=== PATIENT | female | born 1940 | race Caucasian/White ===

== ENCOUNTER 2023-11-04 19:42 | Emergency (ER) | payer OTHER ==
[~2023-11-04] VITALS: Ht 152.4 cm; Wt 54.4 kg
[2023-11-04] MEDS ORDERED: ONDANSETRON 4 MG/2 ML VIAL ONE (20:18)
[2023-11-04] MEDS ORDERED: HYDROMORPHONE 1 MG/1 ML DISP.SYRIN ONE ×2 (20:19→22:48)
[2023-11-04] MEDS: HYDROMORPHONE 1 MG/1 ML DISP.SYRIN IV ONE ×2 (20:22→22:56)
[2023-11-04] MEDS: ONDANSETRON 4 MG/2 ML VIAL IV ONE (20:23)
[2023-11-04 20:26] LABS: BASOPHILS % (AUTO) 0.5 % (0.0-2.0); HEMATOCRIT 31.8 % (31.2-41.9); HEMOGLOBIN 10.7 g/dL (10.9-14.3); LYMPHOCYTES # (AUTO) 0.6 K/uL (0.8-4.8); LYMPHOCYTES % (AUTO) 11.7 % (20.5-51.5); MEAN CORPUSCULAR HGB CONC 34 g/dL (32.3-35.6); MONOCYTES # (AUTO) 0.5 K/uL (0.1-1.30); MONOCYTES % (AUTO) 11.4 % (0.0-11.0); NEUTROPHILS # (AUTO) 3.6 K/uL (1.8-8.9); NEUTROPHILS % (AUTO) 76.4 % (38.5-71.5); PLATELET COUNT (AUTO) 86 K/uL (179-408); RED BLOOD CELL COUNT(AUTO) 3.57 MIL/uL (3.63-4.92); RED CELL DISTRIBUTION WIDTH 16.4 % (12.3-17.7); WHITE BLOOD COUNT (AUTO) 4.7 K/uL (3.8-11.8)
[2023-11-04 20:30] LABS: DIFFERENTIAL COMMENT 1
[2023-11-04 20:34] LABS: CALCIUM 8.8 mg/dL (8.5-10.1); CARBON DIOXIDE 28 mmol/L (21-32); CHLORIDE 102 mmol/L (98-107); CREATININE 0.7 mg/dL (0.6-1.3); GLUCOSE 122 mg/dL (74-106); POTASSIUM 3.8 mmol/L (3.5-5.1); SODIUM SERUM 139 mmol/L (136-145); UREA NITROGEN, BLOOD 18 mg/dL (7-18)
[2023-11-04 20:40] LABS: ALANINE AMINOTRANSFERASE 25 U/L (14-59); ALBUMIN 3.8 g/dL (3.4-5.0); ALKALINE PHOSPHATASE 56 U/L (50-136); ASPARTATE AMINOTRANSFERASE 26 U/L (15-37); BILIRUBIN,TOTAL 1.7 mg/dL (0.2-1.0)
[2023-11-04 20:59] LABS: BAND % (MANUAL) 1 % (0-10); LYMPHOCYTES % (MANUAL) 12 % (20-40); MONOCYTES % (MANUAL) 12 % (2-10); NEUTROPHILS % (MANUAL) 75 % (42-75); PLATELET ESTIMATE DECREASED
[2023-11-04 21:00] LABS: ANISOCYTOSIS 1+; TEAR DROP CELLS OCC
[2023-11-04 21:26] VITALS: O2SAT 99
== END 2023-11-05 00:09 | disposition short-term general hospital (02) ==
LOC: ER 19:44
DX: S72.8X2A Other fracture of left femur, initial encounter for closed fracture (principal); I48.91 Unspecified atrial fibrillation; Z98.890 Other specified postprocedural states; Z20.822 Contact with and (suspected) exposure to COVID-19; Z88.1 Allergy status to other antibiotic agents; W18.39XA Other fall on same level, initial encounter; Y93.89 Activity, other specified; Y92.89 Other specified places as the place of occurrence of the external cause; Y99.8 Other external cause status
CPT/HCPCS: 99284; 96374; 96375; 87426; 80053; 85025; 85610; 36415; 73502; 96376; 72170; 85007; J2405; J1170 ×2; 70030-TC; A4606; A4663